=== PATIENT | female | born 1990 | race Two or more races ===

== ENCOUNTER 2024-08-23 00:26 | Emergency (ER) | payer OTHER ==
[~2024-08-23] VITALS: Ht 165.1 cm; Wt 117.0 kg
[2024-08-23 00:41] VITALS: BP 131/77; O2SAT 100
[2024-08-23] MEDS ORDERED: TIROSINT13 MCG (00:41)
[2024-08-23] MEDS ORDERED: ACETAMINOPHEN 500 MG GEL..CAP PO STA (02:15)
[2024-08-23 03:11] LABS: INR 1.05; PARTIAL THROMBOPLASTIN TIME 26.2 SECONDS (22.0-34.0); PROTHROMBIN TIME 11.4 SECONDS (9.0-11.5)
[2024-08-23 03:17] LABS: HEMATOCRIT 31.3 % (36.0-45.00); HEMOGLOBIN 9.8 g/dL (12.0-15.00); MEAN CORPUSCULAR HEMOGLOBIN 18.8 pg (27.00-32.0); MEAN CORPUSCULAR HGB CONC 31.2 g/dl (32.0-36.0); PLATELET COUNT 264 K/uL (150-450); RED BLOOD COUNT 5.19 M/uL (4.00-6.00); RED CELL DISTRIBUTION WIDTH 15.5 % (11.5-14.5)
[2024-08-23 03:21] LABS: MEAN CELL VOLUME 60.2 fL (80.00-100.00)
[2024-08-23 03:30] LABS: ALBUMIN 3.4 gm/dL (3.4-5.0); BILIRUBIN TOTAL 0.52 mg/dL (0.3-1.2); CREATININE SERUM 0.76 mg/dL (0.55-1.02); GFR 86.11; GLOBULINA 4.2 G/DL (2.4-3.5); POTASSIUM 4.05 mEq/L (3.5-5.1); TOTAL PROTEIN 7.6 gm/dL (6.4-8.2)
[2024-08-23] MEDS ORDERED: IRON236 MG PO (07:05)
== END 2024-08-23 07:11 ==
LOC: ER 00:28
PROVIDERS: General Practice
DX: O03.9 Complete or unspecified spontaneous abortion without complication (principal)

== ENCOUNTER → 2024-12-20 | Outpatient (CLI) | payer OTHER ==
[~2024-12-20] MED LIST: IRON236 MG PO; TIROSINT13 MCG
== END | disposition home or self-care (01) ==
LOC: PRENATAL 10:25
PROVIDERS: ATTEND Obstetrics & Gynecology Maternal & Fetal Medicine
DX: O26.849 Uterine size-date discrepancy, unspecified trimester (principal); Z36.0 Encounter for antenatal screening for chromosomal anomalies; Z14.8 Genetic carrier of other disease; O99.280 Endocrine, nutritional and metabolic diseases complicating pregnancy, unspecified trimester; O99.210 Obesity complicating pregnancy, unspecified trimester; Z3A.16 16 weeks gestation of pregnancy

== ENCOUNTER 2025-01-25 06:59 | Outpatient (CLI) | payer OTHER | END 2025-01-25 07:00 | disposition home or self-care (01) | LOC: PRENATAL 06:59 | PROVIDERS: ATTEND Obstetrics & Gynecology Maternal & Fetal Medicine | DX: O44.00 Complete placenta previa NOS or without hemorrhage, unspecified trimester (principal); O99.280 Endocrine, nutritional and metabolic diseases complicating pregnancy, unspecified trimester; O99.210 Obesity complicating pregnancy, unspecified trimester; Z3A.20 20 weeks gestation of pregnancy ==

== ENCOUNTER 2025-01-31 20:58 | Emergency (ER) | payer OTHER ==
[~2025-01-31] VITALS: Ht 165.1 cm; Wt 117.9 kg
[2025-01-31 21:22] VITALS: BP 119/76; O2SAT 100
[2025-02-01 00:25] LABS: HEMATOCRIT 28.1 % (34.1-44.9); MEAN CORPUSCULAR HEMOGLOBIN 19.1 pg (25.6-32.2); PLATELET COUNT 257 K/uL (163-369); RED CELL DISTRIBUTION WIDTH 16.2 % (11.6-14.4)
[2025-02-01 00:26] LABS: BASO % 0.3 % (0.1-1.2); EOS # 0.43 (0.04-0.54); EOS % 3.7 % (0.7-7.0); LYMPH # 1.77 (1.18-3.74); LYMPH % 15.1 % (19.3-53.1); MONO # 1.06 (0.24-0.82); NEUT # 8.35 (1.56-6.13)
[2025-02-01 01:29] LABS: COVID-19 AG NEGATIVE (NEGATIVE); INFLUENZA A AG NEGATIVE (NEGATIVE); INFLUENZA B AG NEGATIVE (NEGATIVE)
== END 2025-02-01 01:58 | disposition home or self-care (01) ==
LOC: ER 21:00
PROVIDERS: Preventive Medicine Public Health & General Preventive Medicine
DX: J06.9 Acute upper respiratory infection, unspecified (principal); J32.9 Chronic sinusitis, unspecified; J45.909 Unspecified asthma, uncomplicated; D56.8 Other thalassemias; Z20.822 Contact with and (suspected) exposure to COVID-19

== ENCOUNTER → 2025-03-18 11:32 | Outpatient (CLI) | payer OTHER ==
[~2025-03-18 11:32] MED LIST changes: +SYNTHROID50 MCG PO
== END | disposition home or self-care (01) ==
LOC: PRENATAL 11:32
PROVIDERS: ATTEND Obstetrics & Gynecology
DX: O26.849 Uterine size-date discrepancy, unspecified trimester (principal); O43.90 Unspecified placental disorder, unspecified trimester; O99.280 Endocrine, nutritional and metabolic diseases complicating pregnancy, unspecified trimester; O99.210 Obesity complicating pregnancy, unspecified trimester; Z3A.28 28 weeks gestation of pregnancy

== ENCOUNTER 2025-05-01 08:46 | Outpatient (CLI) | payer OTHER | END 2025-05-01 08:49 | disposition home or self-care (01) | LOC: PRENATAL 08:46 | PROVIDERS: ATTEND Obstetrics & Gynecology Maternal & Fetal Medicine | DX: O26.849 Uterine size-date discrepancy, unspecified trimester (principal); O36.8130 Decreased fetal movements, third trimester, not applicable or unspecified; O43.90 Unspecified placental disorder, unspecified trimester; O99.280 Endocrine, nutritional and metabolic diseases complicating pregnancy, unspecified trimester; O99.210 Obesity complicating pregnancy, unspecified trimester; O99.019 Anemia complicating pregnancy, unspecified trimester; Z3A.35 35 weeks gestation of pregnancy ==

== ENCOUNTER 2025-05-03 15:47 | Outpatient (CLI) | payer OTHER ==
[~2025-05-03] VITALS: Ht 165.1 cm; Wt 125.2 kg
[2025-05-03 15:30] VITALS: BP 119/71
[2025-05-03] MEDS ORDERED: RINGERS SOLUTION,LACTATED 1,000 ML IV SCH (16:00)
[2025-05-03] MEDS ORDERED: CHILDREN'S ASPI81 MG PO (16:27)
[2025-05-03] MEDS ORDERED: PRENATA CHEWAB1 EACH PO (16:27)
[2025-05-03 16:38] LABS: URINE APPEARANCE Clear; URINE BILIRRUBIN Negative (NEGATIVE); URINE BLOOD Negative; URINE COLOR Yellow; URINE GLUCOSE Negative (NEGATIVE); URINE KETONE Negative (NEGATIVE); URINE LEUKOCYTE Large; URINE NITRATE Negative; URINE PROTEIN Negative (NEGATIVE); URINE UROBILINOGEN 0.2 E.U./dl
[2025-05-03 16:39] LABS: BASO % 0.3 % (0.1-1.2); EOS # 0.08 (0.04-0.54); EOS % 0.9 % (0.7-7.0); LYMPH # 0.90 (1.18-3.74); LYMPH % 9.7 % (19.3-53.1); MONO # 0.60 (0.24-0.82); MONO % 6.4 % (4.7-12.5); NEUT # 7.62 (1.56-6.13); NEUT % 81.8 % (34.0-71.1); RED CELL DISTRIBUTION WIDTH 15.2 % (11.6-14.4); URINE BACTERIA 1641.3 uL (0.0-1933); URINE CAST 0.43 uL (0.0-1.40); URINE EPITHELIAL CELLS 42.2 uL (0.0-38.8); URINE RBC 0.8 uL (0.0-20.8); URINE WBC 83.8 uL (0.0-23.2)
[2025-05-03] MEDS ORDERED: SOD FERRIC GLUC COMPLX/SUCROSE 62.5 MG/5 ML AMPUL IV SCH (17:00)
[2025-05-03] MEDS ORDERED: SOD FERRIC GLUC COMPLX/SUCROSE 62.5 MG/5 ML AMPUL IV NR (18:30)
[2025-05-03 19:35] VITALS: BP 100/65
[2025-05-03] MEDS ORDERED: GUAIFENESIN 200 MG/10 ML BLIST.PACK PO PRN (20:45)
[2025-05-03 21:30] LABS: COVID-19 AG NEGATIVE (NEGATIVE)
[2025-05-03 23:27] VITALS: BP 99/61
[2025-05-04 03:44] VITALS: BP 94/56; O2SAT 100
[2025-05-04 07:10] VITALS: BP 88/51
[2025-05-04] MEDS ORDERED: SOD FERRIC GLUC COMPLX/SUCROSE 62.5 MG/5 ML AMPUL IV SCH (09:00)
[2025-05-04 11:09] VITALS: BP 88/59
== END 2025-05-04 11:09 | disposition home or self-care (01) ==
LOC: OBS/DEL 15:47
PROVIDERS: ATTEND Obstetrics & Gynecology
DX: O36.8130 Decreased fetal movements, third trimester, not applicable or unspecified (principal); O32.9XX0 Maternal care for malpresentation of fetus, unspecified, not applicable or unspecified; Z3A.34 34 weeks gestation of pregnancy

== ENCOUNTER 2025-06-18 15:37 | Inpatient (IN) | payer OTHER ==
[~2025-06-18] VITALS: Ht 165.1 cm; Wt 117.9 kg
[~2025-06-18 15:37] MED LIST changes: +CHILDREN'S ASPI81 MG PO; +PRENATA CHEWAB1 EACH PO
--- NOTE | 2025-06-18 16:03 | NUR ---
PTE ALERTA Y ORIENTADA X3 REFIERE VENIR A [place] DADO A QUE SE LE INFECTO AREA DE [place]. LA MISMA SE OBSERVA SUPURANDO.
[2025-06-18] MEDS ORDERED: PIPERACILLIN/TAZOBACTAM SODIUM 3.375 GM VIAL IV ONE ×2 (16:45→17:31)
[2025-06-18] MEDS ORDERED: FAMOtidine 10 MG/ML (4ML VIAL) IV ONE (16:45)
[2025-06-18] MEDS ORDERED: 0.9 % SODIUM CHLORIDE 1,000 ML IV ONE (16:45)
[2025-06-18] MEDS ORDERED: FAMOTIDINE/PF 20 MG/2 ML VIAL ONE (17:31)
[2025-06-18 18:15] LABS: BASO % 0.4 % (0.1-1.2); EOS # 0.18 (0.04-0.54); EOS % 2.4 % (0.7-7.0); LYMPH # 1.72 (1.18-3.74); LYMPH % 23.2 % (19.3-53.1); MEAN PLATELET VOLUME 11.00 fl (9.4-12.4); MONO # 0.62 (0.24-0.82); MONO % 8.4 % (4.7-12.5); NEUT # 4.84 (1.56-6.13); NEUT % 65.3 % (34.0-71.1); RED CELL DISTRIBUTION WIDTH 15.3 % (11.6-14.4)
[2025-06-18 18:43] LABS: INR 1.01
--- NOTE | 2025-06-18 18:45 | NUR ---
SE ORIENTA A PACIENTE SOBRE TX MEDICO, REFIERE ENTENDER. SE REALIZAN MUESTRAS DE LABORATORIO BAJO MEDIDAS ASEPTICAS.SE ADMINISTRAN MEDICAMENTOS ALEJANDRO ORDEN MEDICA. SE COORDINA BOLA X. PACIENTE MANEJADA POR .
[2025-06-18 18:52] LABS: ALT/SGPT 52.0 U/L (12-78); AST/SGOT 21.0 U/L (15-37); BILIRUBIN TOTAL 0.34 mg/dL (0.3-1.2); BUN CREA RATIO 17.0 (7.0-25.0); CREATININE SERUM 0.75 mg/dL (0.55-1.02); GFR 86.95; GLOBULINA 4.3 G/DL (2.4-3.5); GLUCOSE FASTING 87.0 mg/dL (65-100); OSMOLALITY SERUM 284.0 MOSM/KG (275-295)
[2025-06-18 21:12] LABS: URINE APPEARANCE Clear; URINE BILIRRUBIN Negative (NEGATIVE); URINE BLOOD Large; URINE COLOR Yellow; URINE GLUCOSE Negative (NEGATIVE); URINE KETONE Negative (NEGATIVE); URINE LEUKOCYTE Small; URINE NITRATE Negative; URINE PROTEIN Negative (NEGATIVE); URINE UROBILINOGEN 0.2 E.U./dl
[2025-06-18 21:17] LABS: URINE BACTERIA 14.3 uL (0.0-1933); URINE EPITHELIAL CELLS 2.7 uL (0.0-38.8); URINE RBC 192.5 uL (0.0-20.8); URINE WBC 34.4 uL (0.0-23.2)
[2025-06-18 21:19] LABS: URINE CAST 0.00 uL (0.0-1.40)
[2025-06-19 07:58] VITALS: O2SAT 99
[2025-06-19 13:05] VITALS: BP 113/74
[2025-06-19 16:00] VITALS: BP 92/60
[2025-06-19] MEDS ORDERED: CEFOXITIN SODIUM 2,000 MG VIAL IV SCH (21:00)
[2025-06-20 02:46] VITALS: BP 114/73
[2025-06-20 08:00] VITALS: BP 109/71
[2025-06-20 17:43] VITALS: BP 100/61
[2025-06-20] MEDS ORDERED: PIPERACILLIN/TAZOBACTAM SODIUM 3.375 GM in DEXTROSE 5 % IN WATER 100 ML IV SCH (20:00)
[2025-06-20] MEDS ORDERED: VANCOMYCIN HCL 1,000 MG VIAL IV SCH (21:00)
[2025-06-20] MEDS ORDERED: CEFEPIME HCL 2,000 MG VIAL IV SCH (21:00)
[2025-06-20 21:23] LABS: BUN CREA RATIO 19.0 (7.0-25.0); CREATININE SERUM 0.73 mg/dL (0.55-1.02); GFR 89.7; GLUCOSE FASTING 76.0 mg/dL (65-100); OSMOLALITY SERUM 286.0 MOSM/KG (275-295)
[2025-06-21 01:34] VITALS: BP 100/64
[2025-06-21 02:35] LABS: URINE APPEARANCE Clear; URINE BILIRRUBIN Negative (NEGATIVE); URINE BLOOD Large; URINE COLOR Yellow; URINE GLUCOSE Negative (NEGATIVE); URINE KETONE Negative (NEGATIVE); URINE LEUKOCYTE Trace; URINE NITRATE Negative; URINE PROTEIN Negative (NEGATIVE); URINE UROBILINOGEN 0.2 E.U./dl
[2025-06-21 02:38] LABS: URINE BACTERIA 37.1 uL (0.0-1933); URINE EPITHELIAL CELLS 3.6 uL (0.0-38.8); URINE RBC 283.5 uL (0.0-20.8); URINE WBC 47.9 uL (0.0-23.2)
[2025-06-21 02:44] LABS: URINE CAST 0.00 uL (0.0-1.40)
[2025-06-21 06:15] LABS: BASO % 0.6 % (0.1-1.2); EOS # 0.17 (0.04-0.54); EOS % 2.7 % (0.7-7.0); LYMPH # 1.91 (1.18-3.74); LYMPH % 30.4 % (19.3-53.1); MONO # 0.51 (0.24-0.82); MONO % 8.1 % (4.7-12.5); NEUT # 3.65 (1.56-6.13); NEUT % 58.0 % (34.0-71.1); RED CELL DISTRIBUTION WIDTH 14.8 % (11.6-14.4)
[2025-06-21 06:45] LABS: ALT/SGPT 38.0 U/L (12-78); AST/SGOT 18.0 U/L (15-37); BILIRUBIN TOTAL 0.31 mg/dL (0.3-1.2); BUN CREA RATIO 17.0 (7.0-25.0); CREATININE SERUM 0.7 mg/dL (0.55-1.02); GFR 94.15; GLOBULINA 3.6 G/DL (2.4-3.5); GLUCOSE FASTING 77.0 mg/dL (65-100); OSMOLALITY SERUM 282.0 MOSM/KG (275-295)
[2025-06-21 08:00] VITALS: BP 107/67
[2025-06-21 16:00] VITALS: BP 93/60
[2025-06-22 00:50] VITALS: BP 97/68
[2025-06-22 08:26] LABS: BUN CREA RATIO 17.0 (7.0-25.0); CREATININE SERUM 0.76 mg/dL (0.55-1.02); GFR 85.63; GLUCOSE FASTING 77.0 mg/dL (65-100); OSMOLALITY SERUM 288.0 MOSM/KG (275-295)
[2025-06-22 10:09] VITALS: BP 120/71
[2025-06-22 17:30] VITALS: BP 97/64
[2025-06-23] VITALS: BP 100/65
[2025-06-23 08:00] VITALS: BP 98/52
[2025-06-23 16:45] VITALS: BP 122/79
[2025-06-23] MEDS ORDERED: LINEZOLID 600 MG TABLET PO SCH (21:00)
[2025-06-24 00:12] VITALS: BP 106/69
[2025-06-24 08:23] VITALS: BP 104/65
[2025-06-24 08:51] LABS: BUN CREA RATIO 18.0 (7.0-25.0); CREATININE SERUM 0.84 mg/dL (0.55-1.02); GFR 76.29; GLUCOSE FASTING 75.0 mg/dL (65-100); OSMOLALITY SERUM 284.0 MOSM/KG (275-295)
[2025-06-24 16:52] VITALS: BP 102/69
[2025-06-25 00:31] VITALS: BP 113/74
[2025-06-25 07:27] LABS: BASO % 0.8 % (0.1-1.2); EOS # 0.33 (0.04-0.54); EOS % 4.5 % (0.7-7.0); LYMPH # 2.23 (1.18-3.74); LYMPH % 30.3 % (19.3-53.1); MONO # 0.65 (0.24-0.82); MONO % 8.8 % (4.7-12.5); NEUT # 4.08 (1.56-6.13); NEUT % 55.5 % (34.0-71.1); RED CELL DISTRIBUTION WIDTH 15.0 % (11.6-14.4)
[2025-06-25 08:01] LABS: ALT/SGPT 30.0 U/L (12-78); AST/SGOT 15.0 U/L (15-37); BILIRUBIN TOTAL 0.32 mg/dL (0.3-1.2); BUN CREA RATIO 17.0 (7.0-25.0); CREATININE SERUM 0.86 mg/dL (0.55-1.02); GFR 74.25; GLOBULINA 3.5 G/DL (2.4-3.5); GLUCOSE FASTING 81.0 mg/dL (65-100); OSMOLALITY SERUM 287.0 MOSM/KG (275-295)
[2025-06-25 08:34] VITALS: BP 95/60
[2025-06-25 16:00] VITALS: BP 90/55
[2025-06-26 00:55] VITALS: BP 105/67
[2025-06-26 08:35] VITALS: BP 102/61
[2025-06-26 16:00] VITALS: BP 109/68
[2025-06-27 03:18] VITALS: BP 103/63
[2025-06-27 09:21] VITALS: BP 102/68
== END 2025-06-27 16:57 | disposition home or self-care (01) | DRG 776 ==
LOC: ER 15:37 → OB/GYN 06-19 10:55
PROVIDERS: General Practice; Internal Medicine Infectious Disease; ADMIT Obstetrics & Gynecology; ATTEND Obstetrics & Gynecology
PROC: 8E0ZXY6 Isolation (ICD-10-PCS; principal; 2025-06-19)
DX: O86.09 Infection of obstetric surgical wound, other surgical site (principal); B96.20 Unspecified Escherichia coli [E. coli] as the cause of diseases classified elsewhere; B95.2 Enterococcus as the cause of diseases classified elsewhere; B96.5 Pseudomonas (aeruginosa) (mallei) (pseudomallei) as the cause of diseases classified elsewhere